=== PATIENT | female | born 1975 | race Caucasian/White ===

== ENCOUNTER 2016-06-06 15:30 | Outpatient (CLI) | payer OTHER | END 2016-06-06 23:00 | LOC: RT SRH 15:30 | DX: R00.2 Palpitations (principal) ==

== ENCOUNTER 2016-06-23 14:27 | Emergency (ER) | payer OTHER ==
--- NOTE | 2016-06-23 16:26 | DIAGNOSTIC IMAGING REPORT ---
PROCEDURE: XR CERVICAL SPINE 2 OR 3 VIEW INDICATION: NECK PAIN TECHNIQUE: Three views. COMPARISON: None. FINDINGS: There is mild spondylosis at C5-6 with disc space narrowing. No evidence of an acute process or fracture. Reverse curvature possibly secondary to muscle spasm. IMPRESSION: 1. Mild spondylosis and disc space narrowing C5-6. 2. No fracture or dislocation.
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
--- NOTE | 2016-06-23 18:14 | ED ORDER SUMMARY ---
..... Patient: JAYLYN BURKS OrderSheet [facility] VisitID: [id number] [address] [place] [address] 41y, F Registration Date/Time: 06/23/2016 ORDER SHEET Weight: 73.9 kg (stated) Allergies: Bee stings, Compazine, Iodine, Morphine Sulfate, MRI contrast, NSAIDs, Reglan, Shellfish-derived Products, Toradol, Ultram, Tape GENERAL ORDERS: Cervical Spine 2 or 3V Urgent (15:36 06/23/2016 Juan Jose LUNA) (Ack 15:43 LTapper) (16:49 MWtheodore R.NTrip) MEDICATION ORDERS: IV FLUIDS: ORDER SHEET NOTES: [Electronically signed by Charla Hathaway R.N. (19:25 06/23/2016)] [Electronically signed by Power Wong MD (10:08 06/26/2016)] [Electronically locked/signed by Charla Hathaway R.N. (:06/23/2016)]
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
--- NOTE | 2016-06-23 18:14 | ED ORDER SUMMARY ---
..... Patient: JAYLYN BURKS OrderSheet [facility] VisitID: [id number] [address] [place] [address] 41y, F Registration Date/Time: 06/23/2016 ORDER SHEET Weight: 73.9 kg (stated) Allergies: Bee stings, Compazine, Iodine, Morphine Sulfate, MRI contrast, NSAIDs, Reglan, Shellfish-derived Products, Toradol, Ultram, Tape GENERAL ORDERS: Cervical Spine 2 or 3V Urgent (15:36 06/23/2016 Juan Jose LUNA) (Ack 15:43 LTapper) (16:49 MWtheodore R.NTrip) MEDICATION ORDERS: IV FLUIDS: ORDER SHEET NOTES: [Electronically signed by Charla Hathaway R.N. (19:25 06/23/2016)] [Electronically signed by Power Wong MD (10:08 06/26/2016)] [Electronically locked/signed by Charla Hathaway R.N. (:06/23/2016)]
--- NOTE | 2016-06-26 10:08 | ED MED RECONCILIATION SUMMARY ---
Patient: JAYLYN BURKS Medication Reconciliation Report [facility] VisitID: [id number] [address] [place] [place] [address] 41y, F Registration Date/Time: 06/23/2016 Weight: 73.9 kg Height/Length: 66 in. BMI: 26.3 ALLERGIES: Bee stings, Compazine, Iodine, Morphine Sulfate, MRI contrast, NSAIDs, Reglan, Shellfish-derived Products, Tape, Toradol, Ultram The patient's Home Medications are listed below: CONTINUE TAKING THE FOLLOWING MEDICATIONS: Alprazolam Oral 2 mg, at bedtime Calcium Supplement 1200 units 1 day Cyclobenzaprine HCl Oral EpiPen Jr Intramuscular Estradiol 1mg, daily Methadone HCl Oral (10 mg) Methocarbamol Oral Vicodin Oral, PRN zofran 4mg ODT 1 q 6 hours prn The source(s) of the original Home Medication information: patient The following Medications were given to the patient in the Emergency Department: None. The following Medications were prescribed to the patient: None.
--- NOTE | 2016-06-26 10:08 | ED MAR SUMMARY ---
..... Medication Administration Record [facility] [address] [place] [address] Patient: JAYLYN BURKS Visit ID: [id number] 41y, F Weight: 73.9 kg Height/Length: 66 in BMI: 26.3 ALLERGIES: Bee stings, Compazine, Iodine, Morphine Sulfate, MRI contrast, NSAIDs, Reglan, Shellfish-derived Products, Toradol, Ultram, Tape
--- NOTE | 2016-06-26 10:08 | ED MAR SUMMARY ---
..... Medication Administration Record [facility] [address] [place] [address] Patient: JAYLYN BURKS Visit ID: [id number] 41y, F Weight: 73.9 kg Height/Length: 66 in BMI: 26.3 ALLERGIES: Bee stings, Compazine, Iodine, Morphine Sulfate, MRI contrast, NSAIDs, Reglan, Shellfish-derived Products, Toradol, Ultram, Tape
--- NOTE | 2016-06-26 10:08 | ED DISCHARGE INSTRUCTIONS ---
Patient: JAYLYN BURKS General Instructions [facility] VisitID: [id number] [address] [place] [address] 41y, F Registration Date/Time: 06/23/2016 Chronic neck pain. ulnar radiculopathy. INSTRUCTIONS (talk with Dr. Guerra about whether you would benefit from an MRI as discussed). Warnings: GENERAL WARNINGS: Return or contact your physician immediately if your condition worsens or changes unexpectedly, if not improving as expected, or if other problems arise. Your Current Medications: CONTINUE TAKING THE FOLLOWING MEDICATIONS: Alprazolam Oral : 2 mg at bedtime. Calcium Supplement* : 1200 units 1 day. Cyclobenzaprine HCl Oral. EpiPen Jr Intramuscular : prn. Estradiol : 1mg daily. Methadone HCl Oral : Tablet 10 mg. Methocarbamol Oral. Vicodin Oral : PRN. zofran 4mg ODT 1 q 6 hours prn*. Understanding of the discharge instructions verbalized by patient. Follow-up with: Clay Guerra MD, Internal Medicine, , [facility], [address] [place] [address] Follow up Sunday in three days. Call for an appointment. ADDITIONAL INFORMATION Neck Pain [No Trauma] There are several possible causes of neck pain without injury: You can get a minor ligament sprain or muscle strain from a sudden minor neck movement. Sleeping with your neck in an awkward position can also cause this. Some persons respond to emotional stress by tensing the muscles of their neck, shoulders and upper back. Chronic spasm in these muscles can cause neck pain and sometimes headaches. Gradualwear and tearof the joints in the spine can cause degenerative arthritis.This can be a source of occasional or chronic neck pain. With aging or repeated small injuries to the neck, the spinal disks (the cushions between each spinal bone) may bulge and put pressure on a nearby spinal nerve. This causes tingling, pain or numbness spreading from the neck to the shoulder, arm or hand on one side. Acute neck pain usually gets better in one to two weeks. Neck pain related to disk disease, arthritis in the spinal joints or spinal stenosis (narrowing of the spinal canal) can become chronic and last for months or years. Unless you had a forceful physical injury (for example, a car accident or fall), X-rays are usually not ordered for the initial evaluation of neck pain. If pain continues and does not respond to medical treatment, x-rays and other tests may be performed at a later time. Home Care: Rest and relax the muscles. Use a comfortable pillow that supports the head and keeps the spine in a neutral position. The position of the head should not be tilted forward or backward. A rolled up towel may help for a custom fit. Some persons find relief with heat (hot shower, hot bath or heating pad) and massage, while others prefer cold packs (crushed or cubed ice in a plastic bag, wrapped in a towel) . Try both and use the method that feels best for 20 minutes several times a day. You may use acetaminophen (Tylenol) or ibuprofen (Motrin, Advil) to control pain, unless another medicine was prescribed. [ NOTE : If you have chronic liver or kidney disease or ever had a stomach ulcer or GI bleeding, talk with your doctor before using these medicines.] Follow Up with your physician or this facility if your symptoms do not show signs of improvement after one week. Physical therapy or further tests may be needed. [NOTE: A radiologist will review any X-rays or CT scans that were taken. We will notify you of any new findings that may affect your care.] Get Prompt Medical Attention if any of the following occur: Pain becomes worse or spreads into one or both arms Weakness or numbness in one or both arms Increasing headache Neck swelling, difficulty or painful swallowing Fever of 100.4F (38C) or higher, or as directed by your healthcare provider You have been given the following additional information: Neck Pain, No Trauma (Electronically signed by Power Wong MD 06/26/2016 10:08)
--- NOTE | 2016-06-26 10:08 | ED DISCHARGE INSTRUCTIONS ---
Patient: JAYLYN BURKS General Instructions [facility] VisitID: [id number] [address] [place] [address] 41y, F Registration Date/Time: 06/23/2016 Chronic neck pain. ulnar radiculopathy. INSTRUCTIONS (talk with Dr. Guerra about whether you would benefit from an MRI as discussed). Warnings: GENERAL WARNINGS: Return or contact your physician immediately if your condition worsens or changes unexpectedly, if not improving as expected, or if other problems arise. Your Current Medications: CONTINUE TAKING THE FOLLOWING MEDICATIONS: Alprazolam Oral : 2 mg at bedtime. Calcium Supplement* : 1200 units 1 day. Cyclobenzaprine HCl Oral. EpiPen Jr Intramuscular : prn. Estradiol : 1mg daily. Methadone HCl Oral : Tablet 10 mg. Methocarbamol Oral. Vicodin Oral : PRN. zofran 4mg ODT 1 q 6 hours prn*. Understanding of the discharge instructions verbalized by patient. Follow-up with: Clay Guerra MD, Internal Medicine, , [facility], [address] [place] [address] Follow up Sunday in three days. Call for an appointment. ADDITIONAL INFORMATION Neck Pain [No Trauma] There are several possible causes of neck pain without injury: You can get a minor ligament sprain or muscle strain from a sudden minor neck movement. Sleeping with your neck in an awkward position can also cause this. Some persons respond to emotional stress by tensing the muscles of their neck, shoulders and upper back. Chronic spasm in these muscles can cause neck pain and sometimes headaches. Gradualwear and tearof the joints in the spine can cause degenerative arthritis.This can be a source of occasional or chronic neck pain. With aging or repeated small injuries to the neck, the spinal disks (the cushions between each spinal bone) may bulge and put pressure on a nearby spinal nerve. This causes tingling, pain or numbness spreading from the neck to the shoulder, arm or hand on one side. Acute neck pain usually gets better in one to two weeks. Neck pain related to disk disease, arthritis in the spinal joints or spinal stenosis (narrowing of the spinal canal) can become chronic and last for months or years. Unless you had a forceful physical injury (for example, a car accident or fall), X-rays are usually not ordered for the initial evaluation of neck pain. If pain continues and does not respond to medical treatment, x-rays and other tests may be performed at a later time. Home Care: Rest and relax the muscles. Use a comfortable pillow that supports the head and keeps the spine in a neutral position. The position of the head should not be tilted forward or backward. A rolled up towel may help for a custom fit. Some persons find relief with heat (hot shower, hot bath or heating pad) and massage, while others prefer cold packs (crushed or cubed ice in a plastic bag, wrapped in a towel) . Try both and use the method that feels best for 20 minutes several times a day. You may use acetaminophen (Tylenol) or ibuprofen (Motrin, Advil) to control pain, unless another medicine was prescribed. [ NOTE : If you have chronic liver or kidney disease or ever had a stomach ulcer or GI bleeding, talk with your doctor before using these medicines.] Follow Up with your physician or this facility if your symptoms do not show signs of improvement after one week. Physical therapy or further tests may be needed. [NOTE: A radiologist will review any X-rays or CT scans that were taken. We will notify you of any new findings that may affect your care.] Get Prompt Medical Attention if any of the following occur: Pain becomes worse or spreads into one or both arms Weakness or numbness in one or both arms Increasing headache Neck swelling, difficulty or painful swallowing Fever of 100.4F (38C) or higher, or as directed by your healthcare provider You have been given the following additional information: Neck Pain, No Trauma (Electronically signed by Power Wong MD 06/26/2016 10:08)
--- NOTE | 2016-06-26 10:08 | ED MED RECONCILIATION SUMMARY ---
Patient: JAYLYN BURKS Medication Reconciliation Report [facility] VisitID: [id number] [address] [place] [address] 41y, F Registration Date/Time: 06/23/2016 Weight: 73.9 kg Height/Length: 66 in. BMI: 26.3 ALLERGIES: Bee stings, Compazine, Iodine, Morphine Sulfate, MRI contrast, NSAIDs, Reglan, Shellfish-derived Products, Tape, Toradol, Ultram The patient's Home Medications are listed below: CONTINUE TAKING THE FOLLOWING MEDICATIONS: Alprazolam Oral 2 mg, at bedtime Calcium Supplement 1200 units 1 day Cyclobenzaprine HCl Oral EpiPen Jr Intramuscular Estradiol 1mg, daily Methadone HCl Oral (10 mg) Methocarbamol Oral Vicodin Oral, PRN zofran 4mg ODT 1 q 6 hours prn The source(s) of the original Home Medication information: patient The following Medications were given to the patient in the Emergency Department: None. The following Medications were prescribed to the patient: None.
== END 2016-06-23 18:30 | disposition home or self-care (01) ==
LOC: ED SRH 14:27
DX: G89.29 Other chronic pain (principal); M54.2 Cervicalgia; G56.20 Lesion of ulnar nerve, unspecified upper limb; Z79.891 Long term (current) use of opiate analgesic; Z88.5 Allergy status to narcotic agent; Z88.8 Allergy status to other drugs, medicaments and biological substances